=== PATIENT | male | born 1970 | race Caucasian/White ===

== ENCOUNTER → 2018-05-09 | Outpatient (CLI) | payer OTHER, MEDICARE | END | disposition home or self-care (01) | LOC: SHCH 14:25 | PROVIDERS: ATTEND Internal Medicine Cardiovascular Disease | DX: I10 Essential (primary) hypertension (principal) | CPT/HCPCS: 93306 ==

== ENCOUNTER 2018-09-07 15:02 | Emergency (ER) | payer OTHER, MEDICARE ==
[2018-09-07] MEDS ORDERED: OCTYL 2-CYANOACRYLATE 1 EACH TP ONE (15:24)
== END 2018-09-07 17:05 | disposition left against medical advice (07) ==
LOC: EDH 15:02
DX: S51.812A Laceration without foreign body of left forearm, initial encounter (principal); T42.4X2A Poisoning by benzodiazepines, intentional self-harm, initial encounter; X78.8XXA Intentional self-harm by other sharp object, initial encounter; Y93.89 Activity, other specified; Y92.098 Other place in other non-institutional residence as the place of occurrence of the external cause; Y99.8 Other external cause status
CPT/HCPCS: 12004; 93005

== ENCOUNTER 2019-09-05 16:09 | Emergency (ER) | payer OTHER, MEDICARE ==
[2019-09-05 16:26] LABS: BASOPHILS % (AUTO) 0.7 % (0.0-5.0); EOSINOPHILS % (AUTO) 4.6 % (0.0-8.0); HEMATOCRIT 44.1 % (42-54); LYMPHOCYTES % (AUTO) 17.9 % (21.0-51.0); MEAN CORPUSCULAR HEMOGLOBIN 30.3 pg (27.0-33.0); MEAN CORPUSCULAR HGB CONC 34.5 g/dL (32.0-36.0); MEAN CORPUSCULAR VOLUME 87.8 fL (79-99); MONOCYTES % (AUTO) 8.8 % (3.0-13.0); NEUTROPHILS % (AUTO) 67.9 % (40.0-77.0); PLATELET COUNT (AUTO) 220 K/uL (130-400); RED BLOOD CELL COUNT(AUTO) 5.02 MIL/uL (4.50-6.20); WHITE BLOOD COUNT (AUTO) 7.6 K/uL (4.8-10.8)
[2019-09-05] MEDS ORDERED: ASPIRIN 325 MG TABLET ONE (16:30)
[2019-09-05 16:37] LABS: CREATININE 1.1 mg/dL (0.5-1.5); POTASSIUM 3.3 mmol/L (3.5-5.1)
[2019-09-05 16:40] LABS: INR 1.01 (0.85-1.15); PARTIAL THROMBOPLASTIN TIME 26.6 SEC (26.3-35.5); PROTHROMBIN TIME 10.6 SEC (9.6-11.6)
[2019-09-05 16:41] LABS: ALBUMIN 3.7 g/dL (3.5-5.0); BILIRUBIN,TOTAL 0.4 mg/dL (0.2-1.0); TOTAL PROTEIN, SERUM 7.7 g/dL (6.0-8.3)
[2019-09-05 17:39] LABS: ACETAMINOPHEN < 1 mcg/mL (10-29); SALICYLATE < 2.8 mg/dL (2.8-20.0)
[2019-09-05 19:16] LABS: APPEARANCE,URINE Clear (CLEAR); BILIRUBIN,URINE Negative (NEGATIVE); COLOR,URINE Yellow (YELLOW); GLUCOSE, URINE (UA) Negative (NEGATIVE); KETONES,URINE Negative (NEGATIVE); LEUKOCYTE ESTERASE ,URINE Negative (NEGATIVE); NITRATE,URINE Negative (NEGATIVE); OCCULT BLOOD,URINE Negative (NEGATIVE); PH,URINE 5.5 (5.0-8.0); PROTEIN,URINE Negative (NEGATIVE)
[2019-09-05 19:24] LABS: AMPHET/METH SCREEN,URINE NEGATIVE (NEGATIVE); BARBITURATE SCREEN, URINE NEGATIVE (NEGATIVE); BENZODIAZEPINES SCREEN,URINE NEGATIVE (NEGATIVE); CANNABINOID SCREEN,URINE NEGATIVE (NEGATIVE); COCAINE SCREEN,URINE POSITIVE (NEGATIVE); OPIATE SCREEN,URINE NEGATIVE (NEGATIVE); PHENCYCLIDINE SCREEN,URINE NEGATIVE (NEGATIVE)
[2019-09-05] MEDS ORDERED: POTASSIUM BICARB/CIT AC 25 MEQ TABLET.EFF ONE (19:38)
== END 2019-09-05 22:15 | disposition short-term general hospital (02) ==
LOC: EDH 16:09
DX: R07.89 Other chest pain (principal); R45.851 Suicidal ideations; Z72.0 Tobacco use
CPT/HCPCS: 36415; 71045; 80053; 80305; 81003; 82550; 84484 ×2; 85025; 85610; 85730; 93005 ×2; 99285; G0480; G0481

== ENCOUNTER → 2019-10-10 | Outpatient (CLI) | payer OTHER, MEDICARE | END | disposition home or self-care (01) | LOC: SHCH 14:15 | PROVIDERS: ATTEND Internal Medicine Cardiovascular Disease | DX: R07.9 Chest pain, unspecified (principal); R06.09 Other forms of dyspnea | CPT/HCPCS: 93306; 93356 ==

== ENCOUNTER → 2019-10-14 | Outpatient (CLI) | payer OTHER, MEDICARE ==
[~2019-10-14] VITALS: Ht 167.6 cm; Wt 77.1 kg
[~2019-10-14] MED LIST: REGADENOSON 0.4 MG/5 ML PF SYG IVP SCH
== END | disposition home or self-care (01) ==
LOC: SHCH 08:11
PROVIDERS: ATTEND Internal Medicine Cardiovascular Disease
DX: R07.9 Chest pain, unspecified (principal); R06.00 Dyspnea, unspecified; I20.9 Angina pectoris, unspecified
CPT/HCPCS: 78452; 93017; 96374; A9500 ×2; J2785

== ENCOUNTER 2022-04-07 08:48 | Emergency (ER) | payer OTHER, MEDICARE ==
[~2022-04-07] VITALS: Ht 167.6 cm; Wt 86.2 kg
[2022-04-07 09:11] LABS: BASOPHILS % (AUTO) 0.4 % (0.0-5.0); EOSINOPHILS % (AUTO) 2.9 % (0.0-8.0); HEMATOCRIT 45.4 % (42-54); LYMPHOCYTES % (AUTO) 22.8 % (21.0-51.0); MEAN CORPUSCULAR HEMOGLOBIN 30.6 pg (27.0-33.0); MEAN CORPUSCULAR HGB CONC 34.4 g/dL (32.0-36.0); MEAN CORPUSCULAR VOLUME 89.2 fL (79-99); MONOCYTES % (AUTO) 8.5 % (3.0-13.0); NEUTROPHILS % (AUTO) 65.1 % (40.0-77.0); PLATELET COUNT (AUTO) 187 K/uL (130-400); RED BLOOD CELL COUNT(AUTO) 5.09 MIL/uL (4.50-6.20); RED CELL DISTRIBUTION WIDTH 12.7 % (11.0-15.5); WHITE BLOOD COUNT (AUTO) 7.9 K/uL (4.8-10.8)
[2022-04-07 09:21] LABS: APPEARANCE,URINE CLEAR (CLEAR); BILIRUBIN,URINE NEGATIVE (NEGATIVE); COLOR,URINE YELLOW (YELLOW); GLUCOSE, URINE (UA) NEGATIVE (NEGATIVE); KETONES,URINE NEGATIVE (NEGATIVE); LEUKOCYTE ESTERASE ,URINE 250 Leu/uL (NEGATIVE); NITRATE,URINE NEGATIVE (NEGATIVE); OCCULT BLOOD,URINE NEGATIVE (NEGATIVE); PH,URINE 5.5 (5.0-8.0); PROTEIN,URINE 30 mg/dL (NEGATIVE); UROBILINOGEN,URINE 0.2 mg/dL (0.2-1.0)
[2022-04-07 09:24] LABS: ALBUMIN 3.6 g/dL (3.5-5.0); CREATININE 1.2 mg/dL (0.5-1.5); POTASSIUM 3.4 mmol/L (3.5-5.1); TOTAL PROTEIN, SERUM 7.2 g/dL (6.0-8.3)
[2022-04-07 09:50] LABS: BACTERIA,URINE FEW /HPF (None Seen); MUCUS,URINE FEW LPF (None Seen); WBC,URINE 51-100 /HPF (0-1)
[2022-04-07 09:51] LABS: AMPHET/METH SCREEN,URINE NEGATIVE (NEGATIVE); BARBITURATE SCREEN, URINE NEGATIVE (NEGATIVE); BENZODIAZEPINES SCREEN,URINE NEGATIVE (NEGATIVE); CANNABINOID SCREEN,URINE NEGATIVE (NEGATIVE); COCAINE SCREEN,URINE POSITIVE (NEGATIVE); PHENCYCLIDINE SCREEN,URINE NEGATIVE (NEGATIVE)
[2022-04-07] MEDS ORDERED: CEFTRIAXONE 500MG VIAL IM SCH (10:30)
[2022-04-07] MEDS ORDERED: CEPH500B PO (12:35)
[2022-04-07 12:46] VITALS: BP 157/69
== END 2022-04-07 12:50 | disposition home or self-care (01) ==
LOC: EDH 08:48
DX: N39.0 Urinary tract infection, site not specified (principal); F14.10 Cocaine abuse, uncomplicated; E78.00 Pure hypercholesterolemia, unspecified; I10 Essential (primary) hypertension
CPT/HCPCS: 99283; 80053; 80305; 85025; 87088; 36415; 96372; 81001; J0696

== ENCOUNTER → 2022-07-28 | Outpatient (CLI) | payer OTHER, MEDICARE ==
[~2022-07-28] MED LIST changes: +CEPH500B PO; -REGADENOSON 0.4 MG/5 ML PF SYG IVP SCH
[2022-07-28 12:33] LABS: ALBUMIN 3.9 g/dL (3.5-5.0); CREATININE 1.1 mg/dL (0.5-1.5); POTASSIUM 3.8 mmol/L (3.5-5.1); TOTAL PROTEIN, SERUM 7.8 g/dL (6.0-8.3)
== END | disposition home or self-care (01) ==
LOC: LAB 11:43
PROVIDERS: ATTEND Internal Medicine
DX: C64.2 Malignant neoplasm of left kidney, except renal pelvis (principal)
CPT/HCPCS: 36415; 80053

== ENCOUNTER → 2022-09-15 | Outpatient (CLI) | payer OTHER, MEDICARE ==
[2022-09-15 14:20] LABS: CREATININE 1.1 mg/dL (0.5-1.5); POTASSIUM 3.7 mmol/L (3.5-5.1); TOTAL PROTEIN, SERUM 7.7 g/dL (6.0-8.3)
== END | disposition home or self-care (01) ==
LOC: RAH 13:16
PROVIDERS: ATTEND Internal Medicine
DX: M54.50 Low back pain, unspecified (principal); R10.11 Right upper quadrant pain
CPT/HCPCS: 36415; 72100; 80053; 82150; 83690; 86780

== ENCOUNTER → 2023-09-29 | Emergency (ER) | payer OTHER, MEDICARE ==
[~2023-09-29] VITALS: Ht 167.6 cm; Wt 81.6 kg
[~2023-09-29] MED LIST changes: +CHLO120L TP; +HYDROCODONE/ACETAMINOPHEN 5/325 MG TAB PO ONE; +MUPI22OI2 TP; +SULF1TAB42 PO; +SULFAMETHOX-TMP DS 800/160 TAB PO SCH
[2023-09-29 12:44] VITALS: BP 142/74; PULSE 69; RESP 18
== END ==
LOC: EDH 12:22
DX: L02.521 Furuncle right hand (principal); I10 Essential (primary) hypertension; E11.9 Type 2 diabetes mellitus without complications; M19.90 Unspecified osteoarthritis, unspecified site; Z79.899 Other long term (current) drug therapy; Z98.890 Other specified postprocedural states; Z88.8 Allergy status to other drugs, medicaments and biological substances